=== PATIENT | female | born 1965 | race Caucasian/White ===

== ENCOUNTER 2023-06-06 02:38 | Emergency (ER) | payer BC ==
[2023-06-06 03:16] VITALS: RESP 18
[2023-06-06 03:21] LABS: Basophils % (A) 1 %; Eosinophils # (A) 0.2 k/uL (0-0.7); Eosinophils % (A) 3 %; HCT 44.1 % (34.0-46.0); HGB 14.7 gm/dL (11.4-16.0); Lymphocytes % (A) 31 %; MCH 29.3 pg (25.0-35.0); MCHC 33.3 g/dL (31.0-37.0); Mean Platelet Volume 8.9; Monocytes # (A) 0.4 k/uL (0-1.0); Monocytes % (A) 7 %; Neutrophils # (A) 3.6 k/uL (1.3-7.7); Neutrophils % (A) 56 %; Platelet Count 155 k/uL (150-450); RBC 5.01 m/uL (3.80-5.40); RDW 14.3 % (11.5-15.5); WBC 6.4 k/uL (3.8-10.6)
[2023-06-06 03:25] LABS: Appearance,Urine Cloudy (Clear); Bacteria,Urine Rare /hpf; Bilirubin,Urine Negative (Negative); Blood,Urine Small (Negative); Color,Urine Light Yellow; Glucose,Urine (UA) Negative (Negative); Ketones,Urine Negative (Negative); Leukocyte Esterase,Urine Negative (Negative); Mucus,Urine Rare /hpf; Nitrite,Urine Negative (Negative); PH, Urine 6.5 (5.0-8.0); Protein,Urine Trace (Negative); RBC,Urine <1 /hpf (0-5); Specific Gravity,Urine 1.021 (1.001-1.035); Squamous Epithelial Cell,Urine 1 /hpf (0-4); Urobilinogen,Urine <2.0 mg/dL (<2.0); WBC,Urine 4 /hpf (0-5)
[2023-06-06] MEDS: ONDANSETRON 4 MG/2 ML VIAL IVP STA (03:29)
[2023-06-06] MEDS: HYDROmorphone 1 MG/ML 1 ML SYRINGE IVP STA ×2 (03:29→05:21)
[2023-06-06 03:34] LABS: ALT 53 U/L (4-34); AST 40 U/L (14-36); African American GFR (CKD) 88 (>60 ml/min/1.73 sqM); Albumin 4.2 g/dL (3.5-5.0); Alkaline Phosphatase 97 U/L (38-126); Anion Gap 9 mmol/L; Blood Urea Nitrogen 18 mg/dL (7-17); Calcium 9.3 mg/dL (8.4-10.2); Carbon Dioxide 22 mmol/L (22-30); Chloride 109 mmol/L (98-107); Glucose 149 mg/dL (74-99); Lipase 105 U/L (23-300); Non-African American GFR(CKD) 77 (>60 ml/min/1.73 sqM); Potassium 4.3 mmol/L (3.5-5.1); Sodium 140 mmol/L (137-145); Total Bilirubin 0.8 mg/dL (0.2-1.3); Total Protein 6.8 g/dL (6.3-8.2)
[2023-06-06] MEDS: MAG HYDROX/AL HYDROX/SIMETH 30 ML, HYOSCYAMINE ELIXIR 10 ML, LIDOCAINE VISCOUS 2% 10 ML PO STA (04:24)
--- NOTE | 2023-06-06 04:50 | ED ---
Abdominal Pain HPI <Flex Fink - Last Filed: 06/06/23 08:16> - General Source: patient Mode of arrival: ambulatory Limitations: no limitations <Lucita Tong - Last Filed: 06/12/23 15:12> - General Chief Complaint: Abdominal Pain Stated Complaint: abd pain NV Time Seen by Provider: 06/06/23 02:58 - History of Present Illness Initial Comments: 58-year-old female presents emergency department with epigastric pain. States that the pain was sudden onset an hour ago. Denies any numbness, tingling or weakness in her extremities. No chest pain or shortness of breath. Denies fevers, chills or cough patient presents with vomiting. Nonbilious, nonbloody. Denies a ripping or tearing sensation to her back. She did not take anything for pain before coming in. Patient has a known bronchogenic cyst. She is status post appendectomy. No other alleviating, precipitating or modifying factors (Lucita Tong) - Related Data Allergies Allergy/AdvReac Type Severity Reaction Status Date / Time codeine AdvReac Nausea & Verified 06/06/23 02:43 Vomiting Penicillins AdvReac Rash/Hives Verified 06/06/23 02:43 Review of Systems ROS Other: All systems not noted in ROS Statement are negative. <Flex Fink - Last Filed: 06/06/23 08:16> ROS Other: All systems not noted in ROS Statement are negative. <Lucita Tong - Last Filed: 06/12/23 15:12> ROS Statement: Those systems with pertinent positive or pertinent negative responses have been documented in the HPI. Past Medical History Past Medical History: Hypertension Additional Past Medical History / Comment(s): bronchogentic lung cyst History of Any Multi-Drug Resistant Organisms: None Reported Past Surgical History: Appendectomy Additional Past Surgical History / Comment(s): brain surgery for tumor Past Psychological History: No Psychological Hx Reported Smoking Status: Never smoker Past Alcohol Use History: None Reported Past Drug Use History: None Reported <Lucita Tong - Last Filed: 06/12/23 15:12> General Exam Limitations: no limitations General appearance: alert, anxious Head exam: Present: atraumatic, normocephalic, normal inspection Eye exam: Present: normal appearance, PERRL, EOMI. Absent: scleral icterus, conjunctival injection, periorbital swelling ENT exam: Present: normal exam, mucous membranes moist Neck exam: Present: normal inspection. Absent: tenderness, meningismus, lymphadenopathy Respiratory exam: Present: normal lung sounds bilaterally. Absent: respiratory distress, wheezes, rales, rhonchi, stridor Cardiovascular Exam: Present: normal rhythm, bradycardia GI/Abdominal exam: Present: tenderness (Epigastric) Neurological exam: Present: alert, oriented X3 Psychiatric exam: Present: other (Patient is anxious, moaning in the room) Skin exam: Present: diaphoretic <Lucita Tong - Last Filed: 06/12/23 15:12> Course Vital Signs 06/06/23 06/06/23 06/06/23 02:40 04:14 07:32 Temperature 97.4 F L Pulse Rate 56 L 58 L 54 L Respiratory 18 18 18 Rate Blood Pressure 204/104 162/94 154/100 O2 Sat by Pulse 99 95 99 Oximetry 06/06/23 09:34 Temperature 98.1 F Pulse Rate 72 Respiratory 18 Rate Blood Pressure 147/105 O2 Sat by Pulse 98 Oximetry Medical Decision Making - Lab Data Result diagrams: 06/06/23 03:10 06/06/23 03:10 <Flex Fink - Last Filed: 06/06/23 08:16> - Lab Data Result diagrams: 06/06/23 03:10 06/06/23 03:10 <Lucita Tong - Last Filed: 06/12/23 15:12> - Medical Decision Making Was patient admitted / discharged? Hospital course, mention meds given and route, prescriptions, significant lab abnormalities, going to OR and other pertinent info. @ -Patient's ultrasound came back and showed a probable stone in the gallbladder neck with some thickening gallbladder wall she was still having pain. Patient however did not want to have surgery here because she had all of her other physicians at [facility] so she stated she would drive to [facility]. I told her I thought that would be fine I did give her dose of antibiotics prior to leaving. I called [facility] to make them aware that she will be coming in the front door. Undiagnosed new problem with uncertain prognosis? @ -No Drug Therapy requiring intensive monitoring for toxicity (Heparin, Nitro, Insulin, Cardizem)? @ -No Were any procedures done? @ -No Diagnosis/symptom? @ -Acute cholecystitis with cholelithiasis Acute, or Chronic, or Acute on Chronic? @ -Acute Uncomplicated (without systemic symptoms) or Complicated (systemic symptoms)? @ -Complicated Side effects of treatment? @ -No Exacerbation, Progression, or Severe Exacerbation? @ -No Poses a threat to life or bodily function? How? (Chest pain, [place], [place], pneumonia, PE, COPD, DKA, ARF, appy, cholecystitis, CVA, Diverticulitis, Homicidal, Suicidal, threat to staff... and all critical care pts) @ -Yes this could lead to sepsis and endorgan dysfunction (Flex Fink) Was pt. sent in by a medical professional or institution (, PA, NETWORK SERVICES PROJECT MANAGER, urgent care, hospital, or assisted...) When possible be specific @ -No Did you speak to anyone other than the patient for history (EMS, parent, family, police, friend...)? What history was obtained from this source @ -Spoke with patient's sister Did you review nursing and triage notes (agree or disagree)? Why? @ -I reviewed and agree with nursing and triage notes Were old charts reviewed (outside hosp., previous admission, EMS record, old EKG, old radiological studies, urgent care reports/EKG's, assisted records)? Report findings @ -No old charts were reviewed Differential Diagnosis (chest pain, altered mental status, abdominal pain women, abdominal pain men, vaginal bleeding, weakness, fever, dyspnea, syncope, headache, dizziness, GI bleed, back pain, seizure, CVA, palpatations, mental health, musculoskeletal)? @ -Differential Abdominal Pain Women: Appendicitis, Cholecystitis, diverticulosis, ischemic bowel, pancreatitis, hepatitis, UTI, gastroenteritis, AAA, incarcerated hernia, bowel obstruction, constipation, inflammatory bowel, hepatitis, peptic ulcer disease, splenic infarction, perforated viscus, vulvitis, ovarian torsion, PID, kidney stone, placenta abruption, this is not meant to be an all-inclusive list EKG interpreted by me (3pts min.). @ -Yes and demonstrates sinus bradycardia with a rate of 58. AL interval 202. QRS 103. QTc of 449. Inverted T waves V2 through V4. No acute ST segment elevations X-rays interpreted by me (1pt min.). @ -None done CT interpreted by me (1pt min.). @ -Yes and demonstrates patient has known bronchogenic cyst, ectasia of the patient's aorta U/S interpreted by me (1pt. min.). @ -None done What testing was considered but not performed or refused? (CT, X-rays, U/S, labs)? Why? @ -None What meds were considered but not given or refused? Why? @ -None Did you discuss the management of the patient with other professionals (professionals i.e. Dr., PA, NETWORK SERVICES PROJECT MANAGER, lab, RT, psych nurse, protective services social worker, supervisor gluing, teacher, vessel traffic officer, shoe caser)? Give summary @ -Spoke with Dr. Fink who will await gallbladder ultrasound Was smoking cessation discussed for >3mins.? @ -No Was critical care preformed (if so, how long)? @ -No Were there social determinants of health that impacted care today? How? (Homelessness, low income, unemployed, alcoholism, drug addiction, transportatio n, low edu. Level, literacy, decrease access to med. care, retirement, rehab)? @ -No Was there de-escalation of care discussed even if they declined (Discuss DNR or withdrawal of care, Hospice)? DNR status @ -No What co-morbidities impacted this encounter? (DM, HTN, Smoking, COPD, CAD, Cancer, CVA, ARF, Chemo, Hep., AIDS, mental health diagnosis, sleep apnea, morbid obesity)? @ -Bronchogenic cyst Was patient admitted / discharged? Hospital course, mention meds given and route, prescriptions, significant lab abnormalities, going to OR and other pertinent info. @ -Upon arrival patient was placed into room 10. She was moaning in pain in the exam room. IV was established. Pain medications were administered. Laboratory studies are conducted. Patient is sent for a CT as I am highly concerned for process such as dissection. CT demonstrates bronchogenic cyst which the patient is aware of. Results are discussed with patient. She continues to have pain and nausea and therefore was given a second dose of pain and nausea medications. Gallbladder ultrasound will be added as well as a second troponin. [facility] - Lab Data Lab Results 06/06/23 06/06/23 06/06/23 Range/Units 03:10 03:10 03:10 WBC 6.4 (3.8-10.6) k/uL RBC 5.01 (3.80-5.40) m/uL Hgb 14.7 (11.4-16.0) gm/dL Hct 44.1 (34.0-46.0) % MCV 88.0 (80.0-100.0) fL MCH 29.3 (25.0-35.0) pg MCHC 33.3 (31.0-37.0) g/dL RDW 14.3 (11.5-15.5) % Plt Count 155 (150-450) k/uL MPV 8.9 Neutrophils % 56 % Lymphocytes % 31 % Monocytes % 7 % Eosinophils % 3 % Basophils % 1 % Neutrophils # 3.6 (1.3-7.7) k/uL Lymphocytes # 2.0 (1.0-4.8) k/uL Monocytes # 0.4 (0-1.0) k/uL Eosinophils # 0.2 (0-0.7) k/uL Basophils # 0.0 (0-0.2) k/uL Sodium 140 (137-145) mmol/L Potassium 4.3 (3.5-5.1) mmol/L Chloride 109 H (98-107) mmol/L Carbon Dioxide 22 (22-30) mmol/L Anion Gap 9 mmol/L BUN 18 H (7-17) mg/dL Creatinine 0.85 (0.52-1.04) mg/dL Est GFR (CKD-EPI)AfAm 88 (>60 ml/min/1.73 sqM) Est GFR (CKD-EPI)NonAf 77 (>60 ml/min/1.73 sqM) Glucose 149 H (74-99) mg/dL Plasma Lactic Acid Brad 1.7 (0.7-2.0) mmol/L Calcium 9.3 (8.4-10.2) mg/dL Total Bilirubin 0.8 (0.2-1.3) mg/dL AST 40 H (14-36) U/L ALT 53 H (4-34) U/L Alkaline Phosphatase 97 (38-126) U/L Troponin I (0.000-0.034) ng/mL Total Protein 6.8 (6.3-8.2) g/dL Albumin 4.2 (3.5-5.0) g/dL Lipase 105 (23-300) U/L Urine Color Urine Appearance (Clear) Urine pH (5.0-8.0) Ur Specific Lyman (1.001-1.035) Urine Protein (Negative) Urine Glucose (UA) (Negative) Urine Ketones (Negative) Urine Blood (Negative) Urine Nitrite (Negative) Urine Bilirubin (Negative) Urine Urobilinogen (<2.0) mg/dL Ur Leukocyte Esterase (Negative) Urine RBC (0-5) /hpf Urine WBC (0-5) /hpf Ur Squamous Epith Cells (0-4) /hpf Urine Bacteria (None) /hpf Urine Mucus (None) /hpf 06/06/23 06/06/23 06/06/23 Range/Units 03:10 03:10 07:41 WBC (3.8-10.6) k/uL RBC (3.80-5.40) m/uL Hgb (11.4-16.0) gm/dL Hct (34.0-46.0) % MCV (80.0-100.0) fL MCH (25.0-35.0) pg MCHC (31.0-37.0) g/dL RDW (11.5-15.5) % Plt Count (150-450) k/uL MPV Neutrophils % % Lymphocytes % % Monocytes % % Eosinophils % % Basophils % % Neutrophils # (1.3-7.7) k/uL Lymphocytes # (1.0-4.8) k/uL Monocytes # (0-1.0) k/uL Eosinophils # (0-0.7) k/uL Basophils # (0-0.2) k/uL Sodium (137-145) mmol/L Potassium (3.5-5.1) mmol/L Chloride (98-107) mmol/L Carbon Dioxide (22-30) mmol/L Anion Gap mmol/L BUN (7-17) mg/dL Creatinine (0.52-1.04) mg/dL Est GFR (CKD-EPI)AfAm (>60 ml/min/1.73 sqM) Est GFR (CKD-EPI)NonAf (>60 ml/min/1.73 sqM) Glucose (74-99) mg/dL Plasma Lactic Acid Brad (0.7-2.0) mmol/L Calcium (8.4-10.2) mg/dL Total Bilirubin (0.2-1.3) mg/dL AST (14-36) U/L ALT (4-34) U/L Alkaline Phosphatase (38-126) U/L Troponin I <0.012 <0.012 (0.000-0.034) ng/mL Total Protein (6.3-8.2) g/dL Albumin (3.5-5.0) g/dL Lipase (23-300) U/L Urine Color Light Yellow Urine Appearance Cloudy H (Clear) Urine pH 6.5 (5.0-8.0) Ur Specific Lyman 1.021 (1.001-1.035) Urine Protein Trace H (Negative) Urine Glucose (UA) Negative (Negative) Urine Ketones Negative (Negative) Urine Blood Small H (Negative) Urine Nitrite Negative (Negative) Urine Bilirubin Negative (Negative) Urine Urobilinogen <2.0 (<2.0) mg/dL Ur Leukocyte Esterase Negative (Negative) Urine RBC <1 (0-5) /hpf Urine WBC 4 (0-5) /hpf Ur Squamous Epith Cells 1 (0-4) /hpf Urine Bacteria Rare H (None) /hpf Urine Mucus Rare H (None) /hpf Disposition <Felx Fink - Last Filed: 06/06/23 08:16> Is patient prescribed a controlled substance at d/c from ED?: No Time of Disposition: 06:28 <Lucita Tong - Last Filed: 06/12/23 15:12> Clinical Impression: Epigastric pain, Cholecystitis, acute with cholelithiasis Disposition: HOME SELF-CARE Condition: Stable Instructions (If sedation given, give patient instructions): Epigastric Pain (ED) Additional Instructions: Please follow-up with your primary care doctor in regards to your symptoms. I recommend a HIDA scan. Return to the emergency department for any new or worsening symptoms Referrals: Juan Francisco Sarkar MD [Primary Care Provider] - 1-2 days
--- NOTE | 2023-06-06 04:57 | CT ---
EXAM: CT Angiography Chest Without and With Intravenous Contrast CLINICAL HISTORY: epigastric pain, hypertension, vomiting TECHNIQUE: Axial computed tomographic angiography images of the chest without and with intravenous contrast using aortic dissection protocol. CTDI is 36.9 mGy and DLP is 1567.4 mGy-cm. This CT exam was performed using one or more of the following dose reduction techniques: automated exposure control, adjustment of the mA and/or kV according to patient size, and/or use of iterative reconstruction technique. MIP reconstructed images were created and reviewed. COMPARISON: No relevant prior studies available. FINDINGS: Limitations: There is respiratory artifact, which degrades image quality on multiple image slices. Aorta: The ascending thoracic aorta is mildly ectatic, with the mid ascending aorta measuring 4.3 x 4 cm. The aortic arch and descending aorta are normal in caliber. No dissection. No intimal wall abnormality identified on precontrast imaging. Great vessels of aortic arch: No acute findings. No dissection. No arterial occlusion or significant stenosis. Lungs: There is an abnormal ovoid structure involving the inferior right lower lobe adjacent to the diaphragm with surrounding curvilinear changes measuring 2.6 x 2.4 x 1.7 cm. Heterogeneous attenuation in the lower lobes with dependent. Additional subsegmental atelectatic changes. A noncalcified juxtapleural nodule is noted measuring 3 mm in the inferior lingular segment. Pleural space: Unremarkable. No significant effusion. No pneumothorax. Heart: Unremarkable. No cardiomegaly. No significant pericardial effusion. Mediastinum: There is an abnormal fluid and gas collection in the posterior mediastinum adjacent to the decompressed esophagus with lateral extension to the medial aspect of the right lower lobe abutting the subsegmental branches serving the right lower lobe. The collection measures 4.8 x 4.8 x 5.7 cm. There is a suspicious focal defect in the posterior wall of the overlying bronchus (series 504; image 89 and series 501; Image 71). Thyroid: Hypoattenuating ovoid structure involving the isthmus of the thyroid measuring 10 x 13 mm. Bones/joints: Anterior hypertrophic osteophytes noted throughout the thoracic spine. No acute osseous abnormality. No dislocation. Soft tissues: Unremarkable. Lymph nodes: Unremarkable. No enlarged lymph nodes. IMPRESSION: 1. There is an abnormal fluid and gas collection in the posterior mediastinum adjacent to the decompressed esophagus with lateral extension to the medial aspect of the right lower lobe abutting the subsegmental branches serving the right lower lobe. The collection measures 4.8 x 4.8 x 5.7 cm. There is a suspicious focal defect in the posterior wall of the overlying bronchus (series 504; image 89 and series 501; Image 71). Differential considerations include a contained abnormal fluid and gas collection originating from a small focal defect in the right mainstem bronchus versus abnormal contained perforation from the esophagus. An esophageal source is thought to be less likely given lack of mucosal thickening or paraesophageal esophageal/posterior mediastinal fat stranding. 2. The ascending thoracic aorta is mildly ectatic, with the mid ascending aorta measuring 4.3 x 4 cm. The aortic arch and descending aorta are normal in caliber. No dissection. No intimal wall abnormality identified on precontrast imaging. 3. There is an abnormal ovoid structure involving the inferior right lower lobe adjacent to the diaphragm with surrounding curvilinear changes measuring 2.6 x 2.4 x 1.7 cm. The primary consideration is rounded atelectasis. However, continued surveillance is recommended. EXAM: CT Angiography Abdomen and Pelvis Without and With Intravenous Contrast CLINICAL HISTORY: epigastric pain, hypertension, vomiting TECHNIQUE: Axial computed tomographic angiography images of the abdomen and pelvis without and with intravenous contrast. CTDI is 36.9 mGy and DLP is 1567. 4 mGy-cm. This CT exam was performed using one or more of the following dose reduction techniques: automated exposure control, adjustment of the mA and/or kV according to patient size, and/or use of iterative reconstruction technique. MIP reconstructed images were created and reviewed. COMPARISON: No relevant prior studies available. FINDINGS: VASCULATURE: Aorta: The abdominal aorta is normal in caliber without dissection or aneurysm. No intimal wall abnormality identified on precontrast imaging. Celiac trunk and mesenteric arteries: No acute findings. No occlusion or significant stenosis. Renal arteries: No acute findings. No occlusion or significant stenosis. Iliac arteries: No acute findings. No occlusion or significant stenosis. Lung bases: For findings regarding the lung bases, please see the CT report of the chest performed concurrently. No consolidation. ABDOMEN: Liver: Hepatic steatosis. Gallbladder and bile ducts: Unremarkable. No calcified stones. No ductal dilation. Pancreas: Unremarkable. No ductal dilation. No mass. Spleen: Unremarkable. No splenomegaly. Adrenals: Unremarkable. No mass. Kidneys and ureters: Unremarkable. No obstructing stones. No hydronephrosis. No solid mass. Stomach and bowel: The stomach is mildly distended with fluid and gas. No gastric mucosal thickening. No evidence for bowel obstruction. Scattered material in nondilated small bowel loops in the right lower quadrant is identified. No asymmetric bowel mucosal abnormality. Mild stool burden only noted in the ascending colon. No evidence for diverticulitis. PELVIS: Appendix: No findings to suggest acute appendicitis. Bladder: Unremarkable. No stones. No mass. Reproductive: Unremarkable as visualized. ABDOMEN and PELVIS: Intraperitoneal space: Unremarkable. No significant fluid collection. No free air. Bones/joints: Degenerative changes noted throughout the lumbar spine with grade 1 anterolisthesis of L5 on S1. Vacuum phenomenon from L2-3 inferiorly. No acute fracture. No dislocation. Soft tissues: Unremarkable. Lymph nodes: Unremarkable. No enlarged lymph nodes. IMPRESSION: 1. The abdominal aorta is normal in caliber without dissection or aneurysm. No intimal wall abnormality identified on precontrast imaging. 2. No evidence for bowel obstruction. Scattered material in nondilated small bowel loops in the right lower quadrant is identified. No asymmetric bowel mucosal abnormality. Mild stool burden only noted in the ascending colon. No evidence for diverticulitis. No free intraperitoneal fluid or pneumoperitoneum.
[2023-06-06] MEDS: METOCLOPRAMIDE 5 MG/ML 2 ML VIAL IVP STA (07:37)
[2023-06-06] MEDS: diphenhydrAMINE 50 MG/ML 1 ML VIAL IVP STA (07:38)
--- NOTE | 2023-06-06 07:42 | US ---
EXAMINATION TYPE: US gallbladder DATE OF EXAM: 06/06/2023 COMPARISON: Cta CLINICAL INDICATION: Female, 58 years old with history of epigastric pain; Epigastric pain x 5.5 hour s. Hx appendectomy. TECHNIQUE: Multiple sonographic images of the right upper quadrant are obtained. FINDINGS: EXAM MEASUREMENTS: Liver Length: 20.6 cm Gallbladder Wall: 0.49 cm CBD: 0.7 cm Right Kidney: 11.9 x 6.2 x 5.3 cm SUPERINTENDENT OIL FIELD DRILLING NOTES: Exam is limited due to gas and patient body habitus. Pancreas: Tail was not well seen. Liver: Enlarged, heterogeneous, with increased echogenicity. Gallbladder: Appears hydropic at 11.1 cm in length, wall appears thickened. *Hyperechoic focus wit h posterior shadowing seen within the neck: 1.5 x 1.7 x 1.0 cm. Evidence for sonographic Bustamante's sign: No CBD: Slightly dilated Right Kidney: No hydronephrosis or masses seen IMPRESSION: 1. Hepatomegaly with fatty infiltration 2. Cholelithiasis. The common bile duct is minimally prominent. Gallbladder wall thickening is presen t. Clinical correlation for acute cholecystitis is recommended
[2023-06-06] MEDS: LEVOFLOXACIN 500MG-D5W PMX 500 MG in DEXTROSE/WATER 1 100ML.BAG IVPB STA (08:18)
[2023-06-06 09:49] VITALS: BP 147/105; PULSE 72; TEMP 98.1
== END 2023-06-06 09:37 | disposition home or self-care (01) ==
LOC: EC 02:38
DX: K80.00 Calculus of gallbladder with acute cholecystitis without obstruction (principal); K76.0 Fatty (change of) liver, not elsewhere classified; Z88.0 Allergy status to penicillin; Z88.5 Allergy status to narcotic agent
CPT/HCPCS: 99284; 96365; 96375 ×3; 96376; 36415; 93005; 80053; 83605; 83690; 84484; 85025; 81001; 76705; 71275; 74174; J2765; J2405; J1956; J1170; Q9967